=== PATIENT | female | born 1960 | race American Indian/Alaskan Native ===

== ENCOUNTER 2020-06-05 06:35 | Day surgery (SDC) | payer BC ==
[2020-06-05] MEDS ORDERED: ASPIRIN EC 325 MG TAB PO NR (07:07)
[2020-06-05 07:36] LABS: INR 0.9 (0.87-1.13)
[2020-06-05 07:38] LABS: BUN/Creatinine Ratio 23; Blood Urea Nitrogen 18 mg/dL (7-17); Calcium 9.3 mg/dL (8.4-10.2); Hemolysis Index 0
[2020-06-05 07:46] LABS: Basophils % (Auto) 0.4 % (0.0-1.8); Eosinophils # (Auto) 0.1 K/mm3 (0.0-0.4); Eosinophils % (Auto) 1.6 % (0.0-4.3); Hematocrit 37.6 % (30.3-42.9); Hemoglobin 12.2 gm/dl (10.1-14.3); Lymphocytes # (Auto) 2.8 K/mm3 (1.2-5.4); Lymphocytes % (Auto) 35.4 % (13.4-35.0); Mean Corpuscular HGB Conc 33 % (30-34); Mean Corpuscular Volume 76 fl (79-97); Monocytes # (Auto) 0.4 K/mm3 (0.0-0.8); Monocytes % (Auto) 5.1 % (0.0-7.3); Platelet Count 241 K/mm3 (140-440); Red Blood Count 4.94 M/mm3 (3.65-5.03); Red Cell Distribution Width 15.5 % (13.2-15.2)
[2020-06-05] MEDS: SODIUM CHLORIDE 0.9% 500 ML 500 ML IV SCH ×4 (07:55→11:47)
[2020-06-05] MEDS ORDERED: FAMOTIDINE 20 MG/2 ML INJ IV NR (08:12)
[2020-06-05] MEDS ORDERED: methylPREDNISolone Sod Succinate 125 MG/2 ML INJ IV NR (08:12)
[2020-06-05] MEDS ORDERED: diphenhydrAMINE 50 MG/ML VIAL IV NR (08:13)
[2020-06-05] MEDS ORDERED: diphenhydrAMINE 50 MG/ML VIAL ONE (08:17)
[2020-06-05] MEDS ORDERED: FAMOTIDINE 20 MG/2 ML INJ IV ONE (08:17)
[2020-06-05] MEDS: MIDAZOLAM 2 MG/2 ML INJ ONE ×3 (08:54→11:45)
[2020-06-05] MEDS: fentaNYL 100 MCG/2 ML INJ ONE ×3 (08:54→11:45)
[2020-06-05] MEDS: LIDOCAINE (2%) 20 MG/1 ML VIAL 20 ML MDV INFILTRATI ONE ×4 (08:54→11:45)
[2020-06-05] MEDS: HEPARIN 10,000 UNITS/10 ML VIAL ONE ×4 (08:55→11:48)
[2020-06-05] MEDS: VERAPAMIL 5 MG/2 ML INJ ONE ×4 (08:58→11:48)
[2020-06-05] MEDS: NITROGLYCERIN SYRINGE 3 ML ONE ×5 (08:59→11:48)
[2020-06-05] MEDS: HEPARIN/NS 5000 UNIT/500ML 1,000 ML IR ONE ×3 (08:59→11:47)
[2020-06-05] MEDS ORDERED: ATROPINE 0.1% (1 MG/10 ML) CARDIAC SYRINGE ONE (09:05)
[2020-06-05] MEDS ORDERED: EPINEPHrine 1 MG/10 ML SYRINGE ONE (09:05)
[2020-06-05] MEDS ORDERED: LIDOCAINE PF 100 MG/5 ML (CARDIAC SYRINGE) IV ONE (09:05)
[2020-06-05] MEDS ORDERED: PHENYLEPHRINE/NS 1,000 MCG/10 ML SYRINGE (OR USE) IV ONE (09:06)
--- NOTE | 2020-06-05 09:53 | Short Stay Summary ---
Short Stay Documentation Date of service: 06/05/20 - History H&P: obtained from office - Allergies and Medications Current Medications: Allergies erythromycin base Allergy (Intermediate, Verified 06/05/20 07:05) Rash iodine Allergy (Verified 06/05/20 07:05) Rash latex Allergy (Verified 06/05/20 07:05) Rash Penicillins Allergy (Verified 06/05/20 07:06) Rash Home Medications Medication Instructions Recorded Confirmed Last Taken Type Ari/Ala/Linoleic/Oleic/Dha [Adult 1 tab PO DAILY 06/05/20 06/05/20 06/04/20 History Axtell Plus Dha Gummy] 1 tab Cholecalciferol Vit D3 [Vitamin D3 1,000 units PO DAILY 06/05/20 06/05/20 06/04/20 History 1,000 UNIT TAB] 1000 units Cyanocobalamin (Vitamin B-12) 2,500 mcg SL DAILY 06/05/20 06/05/20 06/04/20 History [Vitamin B-12] 2500 mcg Flaxseed Oil [Flax Seed Oil] 2 cap PO DAILY 06/05/20 06/05/20 06/04/20 History 2 caps Multivit-Min/Iron/Folic Acid/K 1 tab PO 06/05/20 06/04/20 History [Multi-Day Plus Minerals Tablet] 1 tab Rosuvastatin Calcium [Crestor] 10 mg PO DAILY 06/05/20 06/05/20 06/04/20 History 10 mg Active Medications Sodium Chloride (Nacl 0.9% 500 Ml) 500 mls @ 50 mls/hr IV DIRECT KEYANA Stop: 06/05/20 17:59 Last Admin: 06/05/20 09:10 Dose: 50 mls/hr Documented by: - Brief post op/procedure progress note Date of procedure: 06/05/20 Pre-op diagnosis: abnl stress Post-op diagnosis: same Procedure: see report Anesthesia: local Estimated blood loss: minimal Pathology: none - Disposition Condition at discharge: Good Disposition: DC-[id number] TO HOME OR SELFCARE - Discharge Diagnoses (1) CAD (coronary artery disease) Status: Acute Qualifiers: Coronary Disease-Associated Artery/Lesion type: [place] artery Associated angina: with stable angina (2) Hyperlipemia, mixed Status: Chronic Short Stay Discharge Plan Activity: advance as tolerated Diet: low fat, low cholesterol Follow up with: CJ RAO MD [Primary Care Provider] - 7 Days
[2020-06-05] MEDS ORDERED: traMADol 50 MG TAB PO PRN (10:30)
[2020-06-05] MEDS ORDERED: HYDROcodone/ACETAMINOPHEN 5-325 MG TAB PO PRN (10:30)
--- NOTE | 2020-06-05 13:01 | Cardiac Catherization Report ---
LEFT HEART CATHETERIZATION SURGEON: Dr. Mike. CLINICAL INFORMATION: This is a 59-year-old patient with obesity, hyperlipidemia and abnormal stress test, here for left heart catheterization done with moderate sedation, started at 9:11 and finished at 9:26, 15 minutes of moderate sedation. Procedure was done via the right radial artery, sterile technique, local anesthesia. Procedure was done via the right radial artery, sterile technique, local anesthesia, 6-[place] radial sheath inserted. A 6-[place] catheter was used to engage left system JL3 .5. Left main is large and patent, bifurcates into large LAD, is patent. Small diagonal 1 patent_. Circumflex is a large caliber vessel that is patent. OM1 ostial has an 80% lesion of a medium caliber vessel. OM2 and 3 medium caliber vessel, patent. RCA engaged with JR4, is a medium caliber vessel, patent. PDA, PLV are small to medium caliber and patent. LV gram done in [place] and [place] shows normal LV function, LVEDP 19 mmHg, LV is 151. Aortic is 140/78. No gradient across the aortic valve on pullback. A 6-[place] catheters all taken over guidewire, 6-[place] radial sheath was discontinued. Radial band applied. No hematoma, no bleeding. SUMMARY: Left main patent, LAD patent, circumflex patent, OM1 ostial 80%. OM2 and 3 patent, RCA patent, we will treat the patient medically for ostial OM1 disease. Aspirin, statin, medical therapy. Normal LV function. Discussed this with the patient and primary striper and family. JOB# [id number] GIRMA/KATIE FLORES
[2020-06-05 13:26] VITALS: BP 133/80
== END 2020-06-05 14:00 | disposition home or self-care (01) ==
LOC: CATHLABREC 06:35
PROVIDERS: ATTEND Internal Medicine
DX: R94.39 Abnormal result of other cardiovascular function study (principal); E78.2 Mixed hyperlipidemia; I25.10 Atherosclerotic heart disease of native coronary artery without angina pectoris; Z90.49 Acquired absence of other specified parts of digestive tract; Z98.890 Other specified postprocedural states; Z88.0 Allergy status to penicillin; Z91.040 Latex allergy status; Z91.041 Radiographic dye allergy status; Z88.8 Allergy status to other drugs, medicaments and biological substances; Z79.899 Other long term (current) drug therapy; Z80.8 Family history of malignant neoplasm of other organs or systems; Z82.49 Family history of ischemic heart disease and other diseases of the circulatory system
CPT/HCPCS: 36415; 80048; 85025; 85610; 85730; 93005; 93458; 99156; C1894; J1200; J1644; J2250; J2930; J3010; J7040; 96374; 96375; J0171; J0461; J2001; J2370; Q9967